=== PATIENT | male | born 1935 | race Caucasian/White ===

== ENCOUNTER 2023-05-19 18:05 | Emergency (ER) | payer MEDICARE, BC ==
[~2023-05-19] VITALS: Ht 175.3 cm; Wt 90.0 kg
[~2023-05-19 18:05] MED LIST: MECL-159 PO
[2023-05-19 18:15] VITALS: TEMP 98.1
[2023-05-19 18:40] LABS: BASOPHILS % (AUTO) 0.2 % (0-1); EOSINOPHILS # (AUTO) 0.2 X10'3 (0-0.9); EOSINOPHILS % (AUTO) 2.2 % (0-6); HEMATOCRIT 37.9 % (42.0-52.0); HEMOGLOBIN 12.7 g/dl (14.0-17.9); LYMPHOCYTES # (AUTO) 1.8 X10'3 (1.1-4.8); LYMPHOCYTES % (AUTO) 25.9 % (21-51); MEAN CORPUSCULAR HEMOGLOBIN 32.7 PG (27.0-31.0); MEAN CORPUSCULAR HGB CONC 33.5 g/dL (33.0-36.5); MEAN CORPUSCULAR VOLUME 97.5 FL (78-98); MEAN PLATELET VOLUME 6.6 FL (7.4-10.4); MONOCYTES # (AUTO) 0.7 X10'3 (0-0.9); MONOCYTES % (AUTO) 9.7 % (2-12); NEUTROPHILS # (AUTO) 4.4 X10'3 (1.8-7.7); PLATELET COUNT 228 X10'3 (140-440); RED BLOOD COUNT 3.89 X10'6 (4.70-6.10); RED CELL DISTRIBUTION WIDTH 13.1 % (11.5-14.5)
[2023-05-19 18:48] LABS: ALANINE AMINOTRANSFERASE 35 U/L (12-78); ALBUMIN 3.1 G/DL (3.4-5.0); ALBUMIN/GLOBULIN RATIO 0.8 (1.1-1.5); ALKALINE PHOSPHATASE 76 IU/L (46-116); ANION GAP 4 (8-16); ASPARTATE AMINO TRANSFERASE 61 U/L (10-37); BILIRUBIN,TOTAL 0.5 MG/DL (0.1-1.0); BLOOD UREA NITROGEN 16 MG/DL (7-18); BUN/CREATININE RATIO 18.8 (10.0-20.0); CALCIUM 9.1 MG/DL (8.5-10.1); CHLORIDE 102 MMOL/L (99-107); CREATININE 0.85 MG/DL (0.60-1.10); GLUCOSE 110 MG/DL (70-104); POTASSIUM 3.6 MMOL/L (3.5-5.1); SODIUM 136 MMOL/L (135-145); TOTAL CARBON DIOXIDE 29.8 MMOL/L (24-32); TOTAL PROTEIN 6.9 G/DL (6.4-8.2); eCRCL 62 ML/MIN; eGFR 85 ML/MIN
[2023-05-19 18:56] LABS: LIPASE 64 U/L (73-393); PRO BRAIN NATRIURETIC PEPTIDE 228 PG/ML (0-450)
[2023-05-19 21:39] LABS: BILIRUBIN,URINE NEGATIVE (Neg); CLARITY,URINE CLEAR (Clear); COLOR,URINE YELLOW (Yellow); GLUCOSE, URINE NEGATIVE (Neg); KETONES,URINE NEGATIVE (Neg); LEUKOCYTE ESTERASE ,URINE NEGATIVE (Neg); NITRITES, URINE NEGATIVE (Neg); OCCULT BLOOD,URINE NEGATIVE (Neg); PROTEIN,URINE NEGATIVE (Neg); UROBILINOGEN,URINE 0.2 E.U/dL (0.2-1.0)
[2023-05-19 21:40] LABS: UA COLLECTION TYPE VOIDED
[2023-05-19 23:00] VITALS: BP 139/64; PULSE 56; RESP 16; O2SAT 90
== END 2023-05-20 01:04 | disposition left against medical advice (07) ==
LOC: ER 18:06
DX: R10.11 Right upper quadrant pain (principal); I10 Essential (primary) hypertension; Z79.899 Other long term (current) drug therapy
CPT/HCPCS: 36415; 71045; 74176; 80053; 81003; 83690; 83880; 84484; 85025; 93005; 99285

== ENCOUNTER 2023-10-10 14:37 | Inpatient (IN) | payer MEDICARE, BC ==
[~2023-10-10] VITALS: Ht 175.3 cm; Wt 92.0 kg
[~2023-10-10 14:37] MED LIST changes: -MECL-159 PO; +MECL-302 PO
[2023-10-10] MEDS ORDERED: LidoCAINE 2% Topical Jelly 11mL syringe TOP ONE (16:50)
[2023-10-10 17:23] LABS: BILIRUBIN,URINE NEGATIVE (Neg); CLARITY,URINE SLIGHTLY CLOUDY (Clear); COLOR,URINE YELLOW (Yellow); GLUCOSE, URINE NEGATIVE (Neg); KETONES,URINE TRACE mg/dl (Neg); LEUKOCYTE ESTERASE ,URINE SMALL (Neg); NITRITES, URINE POSITIVE (Neg); OCCULT BLOOD,URINE TRACE-INTACT (Neg); PROTEIN,URINE NEGATIVE (Neg); UROBILINOGEN,URINE 0.2 E.U/dL (0.2-1.0)
[2023-10-10 17:32] LABS: UA COLLECTION TYPE STRAIGHT CATH
[2023-10-10 17:34] LABS: BACTERIA,URINE 4+ /HPF (Neg); MUCUS STRANDS FEW /LPF (Neg); RBC,URINE 0-2 /HPF (0-2); SQUAMOUS EPITHELIAL CELL,UR FEW /LPF (FEW); WBC,URINE 20-30 /HPF (0-4)
[2023-10-10 17:50] LABS: BASOPHILS # (AUTO) 0.1 X10'3 (0-0.2); BASOPHILS % (AUTO) 0.6 % (0-1); EOSINOPHILS # (AUTO) 0.1 X10'3 (0-0.9); EOSINOPHILS % (AUTO) 0.5 % (0-6); HEMATOCRIT 38.7 % (42.0-52.0); HEMOGLOBIN 12.7 g/dl (14.0-17.9); LYMPHOCYTES # (AUTO) 0.7 X10'3 (1.1-4.8); LYMPHOCYTES % (AUTO) 6.2 % (21-51); MEAN CORPUSCULAR HEMOGLOBIN 32.4 PG (27.0-31.0); MEAN CORPUSCULAR HGB CONC 32.7 g/dL (33.0-36.5); MEAN CORPUSCULAR VOLUME 98.9 FL (78-98); MONOCYTES # (AUTO) 0.8 X10'3 (0-0.9); MONOCYTES % (AUTO) 6.9 % (2-12); NEUTROPHILS # (AUTO) 10.2 X10'3 (1.8-7.7); NEUTROPHILS % (AUTO) 85.8 % (42-75); PLATELET COUNT 169 X10'3 (140-440); RED BLOOD COUNT 3.92 X10'6 (4.70-6.10); RED CELL DISTRIBUTION WIDTH 14.1 % (11.5-14.5); WHITE BLOOD COUNT 11.9 X10'3 (4.5-11.0)
[2023-10-10] MEDS ORDERED: morphine 4 MG/ML inj SYRINge IV ONE (17:50)
[2023-10-10] MEDS ORDERED: ondansetron/PF 4mg/2ml inj IV ONE (17:50)
[2023-10-10 18:02] LABS: APTT 25 SECONDS (22-32); PROTHROMBIN TIME 10.8 SECONDS (9.0-12.0)
[2023-10-10 18:04] LABS: ALANINE AMINOTRANSFERASE 47 U/L (12-78); ALBUMIN 3.2 G/DL (3.4-5.0); ALBUMIN/GLOBULIN RATIO 0.9 (1.1-1.5); ALKALINE PHOSPHATASE 84 IU/L (46-116); ANION GAP 8 (8-16); ASPARTATE AMINO TRANSFERASE 113 U/L (10-37); BILIRUBIN,TOTAL 0.8 MG/DL (0.1-1.0); BLOOD UREA NITROGEN 15 MG/DL (7-18); BUN/CREATININE RATIO 17.9 (10.0-20.0); CALCIUM 8.4 MG/DL (8.5-10.1); CHLORIDE 104 MMOL/L (99-107); CREATININE 0.84 MG/DL (0.60-1.10); GLUCOSE 93 MG/DL (70-104); POTASSIUM 3.3 MMOL/L (3.5-5.1); SODIUM 140 MMOL/L (135-145); TOTAL CARBON DIOXIDE 27.7 MMOL/L (24-32); TOTAL PROTEIN 6.9 G/DL (6.4-8.2); eCRCL 63 ML/MIN; eGFR 87 ML/MIN
[2023-10-10] MEDS ORDERED: magnesium 2GM in 50ml NS 50 ML IV PRN (18:20)
[2023-10-10] MEDS ORDERED: HYDROcodone/acetaminophen 5mg/325mg tablet PO PRN (18:20)
[2023-10-10] MEDS ORDERED: potassium Cl 40MEQ/1/2NS 520ml 520 ML IV PRN (18:20)
[2023-10-10] MEDS ORDERED: acetaminophen 650mg rectal suppository RC PRN (18:20)
[2023-10-10] MEDS ORDERED: morphine 2 MG/ML inj. syringe IV PRN (18:20)
[2023-10-10] MEDS ORDERED: potassium Cl 20 mEq SR tablet PO PRN ×2 (18:20)
[2023-10-10] MEDS ORDERED: acetaminophen 325mg tablet PO PRN ×2 (18:20)
[2023-10-10] MEDS ORDERED: bisacodyl 10mg suppository rectal RC PRN (18:20)
[2023-10-10] MEDS ORDERED: diphenhydrAMINE 25mg capsule PO PRN (18:20)
[2023-10-10] MEDS ORDERED: magnesium hydroxide 30ml (MOM) UD suspension PO PRN (18:20)
[2023-10-10] MEDS ORDERED: magnesium 4gm in 100ml NS 100 ML IV PRN (18:20)
[2023-10-10] MEDS ORDERED: ondansetron/PF 4mg/2ml inj IV PRN (18:20)
[2023-10-10] MEDS ORDERED: mag hydrox/Alum hydrox/simeth 30ml oral suspension PO PRN (18:20)
[2023-10-10] MEDS ORDERED: magnesium Cl slow-release 64mg tablet PO PRN (18:20)
[2023-10-10] MEDS: normal saline 1000ml 1,000 ML IV SCH (19:15)
[2023-10-10] MEDS: CefTRIAXone/D5W-Rocephin 1gm 50 ML IV SCH (19:49)
[2023-10-10] MEDS: docusate sod 100mg capsule PO SCH (20:00)
[2023-10-10] MEDS: K and/or MAG REPLACEMENT MC SCH (20:06)
[2023-10-10] MEDS: heparin, porcine 5000 units/ml vial SQ SCH (20:48)
[2023-10-11] VITALS (23 sets, daily range): BP systolic 95–168; BP diastolic 59–100; PULSE 71–99; RESP 12–21; TEMP 96.8–97.5; O2SAT 95–100
[2023-10-11] MEDS: morphine 2 MG/ML inj. syringe IV PRN (03:38)
[2023-10-11] MEDS: normal saline 1000ml 1,000 ML IV SCH ×2 (04:37→14:12)
[2023-10-11] MEDS: heparin, porcine 5000 units/ml vial SQ SCH ×2 (07:25→20:43)
[2023-10-11] MEDS: K and/or MAG REPLACEMENT MC SCH ×2 (07:29→20:23)
[2023-10-11] MEDS: docusate sod 100mg capsule PO SCH ×2 (07:29→20:00)
[2023-10-11] MEDS: CefTRIAXone/D5W-Rocephin 1gm 50 ML IV SCH (08:32)
[2023-10-11 09:47] LABS: BASOPHILS % (AUTO) 0.1 % (0-1); EOSINOPHILS # (AUTO) 0.2 X10'3 (0-0.9); EOSINOPHILS % (AUTO) 3.2 % (0-6); HEMOGLOBIN 12.4 g/dl (14.0-17.9); LYMPHOCYTES # (AUTO) 0.8 X10'3 (1.1-4.8); LYMPHOCYTES % (AUTO) 10.1 % (21-51); MEAN CORPUSCULAR HEMOGLOBIN 33.1 PG (27.0-31.0); MEAN CORPUSCULAR HGB CONC 33.6 g/dL (33.0-36.5); MEAN CORPUSCULAR VOLUME 98.7 FL (78-98); MONOCYTES # (AUTO) 0.8 X10'3 (0-0.9); MONOCYTES % (AUTO) 9.9 % (2-12); NEUTROPHILS # (AUTO) 5.8 X10'3 (1.8-7.7); NEUTROPHILS % (AUTO) 76.7 % (42-75); PLATELET COUNT 138 X10'3 (140-440); RED BLOOD COUNT 3.75 X10'6 (4.70-6.10); RED CELL DISTRIBUTION WIDTH 14.1 % (11.5-14.5); WHITE BLOOD COUNT 7.6 X10'3 (4.5-11.0)
[2023-10-11 10:09] LABS: ALANINE AMINOTRANSFERASE 167 U/L (12-78); ALBUMIN/GLOBULIN RATIO 0.8 (1.1-1.5); ALKALINE PHOSPHATASE 125 IU/L (46-116); ANION GAP 8 (8-16); ASPARTATE AMINO TRANSFERASE 238 U/L (10-37); BILIRUBIN,TOTAL 1.2 MG/DL (0.1-1.0); BLOOD UREA NITROGEN 13 MG/DL (7-18); BUN/CREATININE RATIO 17.3 (10.0-20.0); CALCIUM 8.3 MG/DL (8.5-10.1); CHLORIDE 103 MMOL/L (99-107); CHOL/HDL RATIO 2.7 (0.00-4.99); CHOLESTEROL 174 MG/DL (0-200); CREATININE 0.75 MG/DL (0.60-1.10); GLUCOSE 100 MG/DL (70-104); HDL CHOLESTEROL 65 MG/DL (35-60); LDL CHOLESTEROL 82 MG/DL (50-100); MAGNESIUM 2.1 MG/DL (1.5-2.4); POTASSIUM 3.6 MMOL/L (3.5-5.1); SODIUM 138 MMOL/L (135-145); TOTAL CARBON DIOXIDE 27.2 MMOL/L (24-32); TOTAL PROTEIN 6.9 G/DL (6.4-8.2); TRIGLYCERIDES 117 MG/DL (20-135); eCRCL 71 ML/MIN; eGFR > 90 ML/MIN
[2023-10-11] MEDS ORDERED: sevoflurane 250ml liquid IH ONE (11:38)
[2023-10-11] MEDS ORDERED: propofol inj 20 ML IV ONE (11:40)
[2023-10-11] MEDS ORDERED: fentaNYL/PF 50MCG/1 ML 2ML syringe ONE (11:40)
[2023-10-11] MEDS ORDERED: ceFAZolin 1000mg inj ONE ×2 (11:46→11:58)
[2023-10-11] MEDS ORDERED: ePHEDrine 50MG/ML INJ. ONE (11:58)
[2023-10-11] MEDS ORDERED: ondansetron/PF 4mg/2ml inj IV PRN (12:00)
[2023-10-11] MEDS ORDERED: morphine 2 MG/ML inj. syringe IV PRN (12:00)
[2023-10-11] MEDS ORDERED: ringers solution, lacted 1,000 ML IV SCH (12:00)
[2023-10-11] MEDS ORDERED: morphine 4 MG/ML inj SYRINge IV PRN (12:00)
[2023-10-11] MEDS ORDERED: meperidine/PF 25mg/ml syringe IV PRN ×3 (12:00)
[2023-10-11] MEDS ORDERED: proCHLORperazine 10 MG/2 ml inj IV PRN (12:00)
[2023-10-11] MEDS ORDERED: vancomycin 1,000mg inj ONE (12:25)
[2023-10-12] MEDS: normal saline 1000ml 1,000 ML IV SCH ×3 (01:05→20:20)
[2023-10-12 06:00] VITALS: BP 120/64; PULSE 96; RESP 18; TEMP 97.9; O2SAT 94
[2023-10-12] MEDS: CefTRIAXone/D5W-Rocephin 1gm 50 ML IV SCH (07:43)
[2023-10-12] MEDS: heparin, porcine 5000 units/ml vial SQ SCH ×2 (07:48→20:13)
[2023-10-12] MEDS: docusate sod 100mg capsule PO SCH ×2 (07:51→20:11)
[2023-10-12 07:56] LABS: BASOPHILS % (AUTO) 0.2 % (0-1); EOSINOPHILS % (AUTO) 0.4 % (0-6); HEMATOCRIT 29.7 % (42.0-52.0); HEMOGLOBIN 9.6 g/dl (14.0-17.9); LYMPHOCYTES # (AUTO) 0.8 X10'3 (1.1-4.8); LYMPHOCYTES % (AUTO) 6.8 % (21-51); MEAN CORPUSCULAR HEMOGLOBIN 32.5 PG (27.0-31.0); MEAN CORPUSCULAR HGB CONC 32.5 g/dL (33.0-36.5); MEAN CORPUSCULAR VOLUME 100.1 FL (78-98); MEAN PLATELET VOLUME 7.4 FL (7.4-10.4); MONOCYTES # (AUTO) 1.2 X10'3 (0-0.9); MONOCYTES % (AUTO) 10.5 % (2-12); NEUTROPHILS # (AUTO) 9.6 X10'3 (1.8-7.7); NEUTROPHILS % (AUTO) 82.1 % (42-75); PLATELET COUNT 138 X10'3 (140-440); RED BLOOD COUNT 2.96 X10'6 (4.70-6.10); RED CELL DISTRIBUTION WIDTH 14.2 % (11.5-14.5); WHITE BLOOD COUNT 11.7 X10'3 (4.5-11.0)
[2023-10-12] MEDS: K and/or MAG REPLACEMENT MC SCH ×2 (08:00→20:00)
[2023-10-12 08:42] LABS: ALANINE AMINOTRANSFERASE 82 U/L (12-78); ALBUMIN 2.4 G/DL (3.4-5.0); ALBUMIN/GLOBULIN RATIO 0.7 (1.1-1.5); ALKALINE PHOSPHATASE 91 IU/L (46-116); ANION GAP 9 (8-16); ASPARTATE AMINO TRANSFERASE 79 U/L (10-37); BILIRUBIN,TOTAL 1.2 MG/DL (0.1-1.0); BLOOD UREA NITROGEN 19 MG/DL (7-18); BUN/CREATININE RATIO 20.4 (10.0-20.0); CHLORIDE 104 MMOL/L (99-107); CREATININE 0.93 MG/DL (0.60-1.10); GLUCOSE 122 MG/DL (70-104); MAGNESIUM 1.8 MG/DL (1.5-2.4); PHOSPHORUS 1.9 MG/DL (2.3-4.5); POTASSIUM 3.7 MMOL/L (3.5-5.1); SODIUM 137 MMOL/L (135-145); TOTAL CARBON DIOXIDE 23.8 MMOL/L (24-32); TOTAL PROTEIN 5.9 G/DL (6.4-8.2); eCRCL 57 ML/MIN; eGFR 77 ML/MIN
[2023-10-12 11:00] VITALS: BP 98/56; PULSE 90; RESP 20; TEMP 99.9; O2SAT 93
[2023-10-12] MEDS ORDERED: FLO0.4C PO (11:57)
[2023-10-12] MEDS ORDERED: MEMA10TA56 PO (11:57)
[2023-10-12] MEDS ORDERED: LISI20TA28 PO (11:57)
[2023-10-12] MEDS ORDERED: DONE10TA44 PO (11:57)
[2023-10-12] MEDS ORDERED: CETI-194 PO (11:57)
[2023-10-12 15:00] VITALS: BP 135/70; PULSE 108; RESP 17; TEMP 98.8; O2SAT 92
[2023-10-12] MEDS: morphine 2 MG/ML inj. syringe IV PRN (15:49)
[2023-10-12 18:00] VITALS: BP 128/68; PULSE 111; RESP 16; TEMP 98.6; O2SAT 92
[2023-10-12] MEDS: Neutra Phos packet PO SCH (20:11)
[2023-10-12] MEDS: HYDROcodone/acetaminophen 10/325mg tab PO PRN (20:12)
[2023-10-12 22:00] VITALS: BP 98/68; PULSE 79; RESP 16; TEMP 97.9; O2SAT 95
[2023-10-13] VITALS (7 sets, daily range): BP systolic 98–137; BP diastolic 55–65; PULSE 88–99; RESP 18–20; TEMP 97.5–100.1; O2SAT 93–99
[2023-10-13] MEDS: normal saline 1000ml 1,000 ML IV SCH ×2 (06:20→16:20)
[2023-10-13] MEDS: HYDROcodone/acetaminophen 10/325mg tab PO PRN (07:13)
[2023-10-13] MEDS: CefTRIAXone/D5W-Rocephin 1gm 50 ML IV SCH (07:13)
[2023-10-13] MEDS: docusate sod 100mg capsule PO SCH (07:13)
[2023-10-13] MEDS: Neutra Phos packet PO SCH ×2 (07:13→13:28)
[2023-10-13] MEDS: heparin, porcine 5000 units/ml vial SQ SCH (07:14)
[2023-10-13 08:00] LABS: BASOPHILS % (AUTO) 0.1 % (0-1); EOSINOPHILS # (AUTO) 0.1 X10'3 (0-0.9); HEMATOCRIT 25.1 % (42.0-52.0); HEMOGLOBIN 8.2 g/dl (14.0-17.9); MEAN CORPUSCULAR HEMOGLOBIN 32.8 PG (27.0-31.0); MEAN CORPUSCULAR HGB CONC 32.9 g/dL (33.0-36.5); MEAN CORPUSCULAR VOLUME 99.6 FL (78-98); MEAN PLATELET VOLUME 7.5 FL (7.4-10.4); MONOCYTES # (AUTO) 1.3 X10'3 (0-0.9); MONOCYTES % (AUTO) 11.2 % (2-12); NEUTROPHILS # (AUTO) 8.9 X10'3 (1.8-7.7); NEUTROPHILS % (AUTO) 78.7 % (42-75); PLATELET COUNT 146 X10'3 (140-440); RED BLOOD COUNT 2.51 X10'6 (4.70-6.10); RED CELL DISTRIBUTION WIDTH 14.1 % (11.5-14.5); WHITE BLOOD COUNT 11.3 X10'3 (4.5-11.0)
[2023-10-13] MEDS: K and/or MAG REPLACEMENT MC SCH (08:00)
[2023-10-13 08:21] LABS: ALANINE AMINOTRANSFERASE 49 U/L (12-78); ALBUMIN 2.2 G/DL (3.4-5.0); ALBUMIN/GLOBULIN RATIO 0.7 (1.1-1.5); ALKALINE PHOSPHATASE 75 IU/L (46-116); ANION GAP 7 (8-16); ASPARTATE AMINO TRANSFERASE 47 U/L (10-37); BILIRUBIN,TOTAL 0.9 MG/DL (0.1-1.0); BLOOD UREA NITROGEN 23 MG/DL (7-18); BUN/CREATININE RATIO 24.2 (10.0-20.0); CALCIUM 7.9 MG/DL (8.5-10.1); CHLORIDE 103 MMOL/L (99-107); CREATININE 0.95 MG/DL (0.60-1.10); GLUCOSE 109 MG/DL (70-104); MAGNESIUM 1.8 MG/DL (1.5-2.4); PHOSPHORUS 1.8 MG/DL (2.3-4.5); POTASSIUM 3.7 MMOL/L (3.5-5.1); SODIUM 137 MMOL/L (135-145); TOTAL CARBON DIOXIDE 27.5 MMOL/L (24-32); TOTAL PROTEIN 5.5 G/DL (6.4-8.2); eCRCL 56 ML/MIN; eGFR 75 ML/MIN
[2023-10-14 15:10] LABS: HBSAG SCREEN Negative (Negative); HEP A AB, IGM Negative (Negative); HEP B CORE AB, IGM Negative (Negative); HEPATITIS C VIRUS ANTIBODY Non Reactive (Non Reactive)
== END 2023-10-13 17:05 | DRG 522 ==
LOC: ER 14:37 → ED HOLD 18:19 → EDBEDREQ 10-11 09:35 → PCU 3S 10-11 15:15
PROVIDERS: ADMIT Family Medicine; ATTEND Family Medicine
PROC: 0SRR0J9 Replacement of Right Hip Joint, Femoral Surface with Synthetic Substitute, Cemented, Open Approach (ICD-10-PCS; principal; 2023-10-11 11:38)
DX: S72.011A Unspecified intracapsular fracture of right femur, initial encounter for closed fracture (principal); N39.0 Urinary tract infection, site not specified; D62 Acute posthemorrhagic anemia; E87.6 Hypokalemia; F02.80 Dementia in other diseases classified elsewhere, unspecified severity, without behavioral disturbance, psychotic disturbance, mood disturbance, and anxiety; G30.9 Alzheimer's disease, unspecified; Z66 Do not resuscitate; R74.01 Elevation of levels of liver transaminase levels; S40.021A Contusion of right upper arm, initial encounter; B96.20 Unspecified Escherichia coli [E. coli] as the cause of diseases classified elsewhere; E83.51 Hypocalcemia; E83.39 Other disorders of phosphorus metabolism; I10 Essential (primary) hypertension; S40.811A Abrasion of right upper arm, initial encounter; W01.0XXA Fall on same level from slipping, tripping and stumbling without subsequent striking against object, initial encounter; Y93.89 Activity, other specified; Y92.098 Other place in other non-institutional residence as the place of occurrence of the external cause; Y99.8 Other external cause status; Z79.899 Other long term (current) drug therapy
CPT/HCPCS: 36415; 71045; 73090; 73502; 73564; 76700; 80053; 80061; 80074; 81001; 83036; 83605; 83735; 84100; 85025; 85610; 85730; 86885; 87040; 87077; 87081; 87088; 87186; 93005; 97110; 97161; 97530; 99285; A4615; A4618; A6454; A7000; C1713; C1776; G0378; J0690; J0696; J1644; J2270; J2405; J2704; J3010; J3370; J3490; J7030; J7120